=== PATIENT | male | born 1955 | race Caucasian/White ===

== ENCOUNTER 2024-02-28 21:05 | Emergency (ER) | payer MEDICARE ==
[2024-02-28] MEDS: Labetalol 100 MG/20 ML MDV IVPUSH ONE (21:10)
[2024-02-28 21:30] LABS: BASOPHILS ABSOLUTE AUTO 0.03 K/uL (0.02-0.10); BASOPHILS PERCENT AUTO 0.4 % (0.0-0.5); EOSINOPHILS ABSOLUTE AUTO 0.13 K/uL (0.04-0.40); EOSINOPHILS PERCENT AUTO 1.7 % (1.0-5.0); HEMATOCRIT 50.7 % (40.0-54.0); LYMPHOCYTES ABSOLUTE AUTO 2.92 K/uL (1.50-4.00); LYMPHOCYTES PERCENT AUTO 37.5 % (20.0-40.0); MEAN CORPUSCULAR HEMOGLOBIN 33.1 pg (27.0-32.0); MEAN CORPUSCULAR HGB CONC 35.5 g/dL (31.0-35.0); MEAN CORPUSCULAR VOLUME 93 fL (76-96); MEAN PLATELET VOLUME 10.3 fL (6.0-10.0); MONOCYTES ABSOLUTE AUTO 0.65 K/uL (0.20-0.80); MONOCYTES PERCENT AUTO 8.4 % (3.0-10.0); NEUTROPHILS ABSOLUTE AUTO 4.05 K/uL (2.00-7.50); PLATELET COUNT,PLT 235 K/uL (150-400); RED BLOOD CELL COUNT 5.43 M/uL (4.50-6.50); RED CELL DISTRIBUTION WIDTH 12.2 % (11.0-16.0); WHITE BLOOD CELL COUNT,WBC 7.8 K/uL (4.0-11.0)
[2024-02-28 21:41] LABS: A/G RATIO 0.9 (0.8-2.0); ALBUMIN 3.6 g/dL (3.4-5.0); ANION GAP 14.7 mmol/L (5.0-15.0); BILIRUBIN TOTAL 0.6 mg/dL (0.0-1.0); CALCIUM 7.9 mg/dL (8.5-10.1); CARBON DIOXIDE,CO2 26.1 mmol/L (21.0-32.0); CREATININE 1.09 mg/dL (0.70-1.30); EST CRCL DRUG DOSING (CG) 74.37 mL/min; POTASSIUM,K 3.8 mmol/L (3.5-5.1); PROTEIN TOTAL,TP 7.4 g/dL (6.4-8.2)
[2024-02-28] MEDS: Esmolol 100 MG/10 ML SDV IVPUSH ONE (21:55)
[2024-02-28 22:03] LABS: PTT,PARTIAL THROMBOPLSTIN TIME 24.3 SECONDS (24.4-33.2)
[2024-02-28] MEDS: niCARdipine HCl 25 MG in Sodium Chloride 0.9% 250 ML IV ONE (22:07)
[2024-02-28] MEDS: Esmolol/Normal Saline 2.5 GM/250 ML BAG IV ONE (22:07)
[2024-02-28] MEDS ORDERED: Esmolol/Normal Saline 2.5 GM/250 ML BAG IV SCH (22:15)
[2024-02-28] MEDS: levETIRAcetam 1,000 MG in Sodium Chloride 0.9% 100 ML IV ONE (22:22)
[2024-02-29] MEDS: LORazepam 2 MG/ML SDV IVPUSH ONE (00:20)
[2024-02-29] MEDS ORDERED: Sodium Chloride 0.9% 10 ML Syringe FLUSH PRN (04:56)
[2024-02-29] MEDS: levETIRAcetam 500 MG/5 ML SDV ONE (05:19)
[2024-02-29] MEDS ORDERED: Esmolol/Normal Saline 2.5 GM/250 ML BAG IV SCH ×3 (05:30)
[2024-03-02 17:03] LABS: KEPPRA (LEVETIRACETAM) <2 ug/mL (10-40)
== END 2024-02-29 02:20 ==
LOC: LB.ED 21:05
DX: I67.4 Hypertensive encephalopathy (principal); Z87.891 Personal history of nicotine dependence
CPT/HCPCS: 36415; 70450; 71045; 80053; 80177; 80307; 82947; 85025; 85610; 85730; 93005; 96365; 96366; 96367; 96368; 96375; 99285; J1953; J2060; J3490; J7050